=== PATIENT | male | born 1960 | race African-American/Black ===

== ENCOUNTER 2022-04-08 23:18 | Emergency (ER) | payer OTHER ==
[2022-04-08 23:29] VITALS: BP 128/82; PULSE 92; RESP 20; TEMP 98.5; BMI 30.6
== END 2022-04-09 01:39 | disposition home or self-care (01) ==
LOC: JER 23:18
DX: T78.40XA Allergy, unspecified, initial encounter (principal)
CPT/HCPCS: 99281-25